=== PATIENT | female | born 1945 | race Caucasian/White ===

== ENCOUNTER 2017-10-21 08:18 | Emergency (ER) | payer MEDICARE, BC ==
[~2017-10-21] VITALS: Ht 170.2 cm; Wt 73.5 kg
[~2017-10-21 08:18] MED LIST: AMOX875T PO; ATOR40TA49 PO; COZA100T PO; FEXO180 PO; LEVO75TA3 PO; PROBCAP4 PO; PROMSYP39 PO
[2017-10-21 08:21] VITALS: BP 158/75; PULSE 47; RESP 16; TEMP 98; O2SAT 97
[2017-10-21] MEDS ORDERED: ATOR40TA16 PO (08:32)
[2017-10-21] MEDS ORDERED: FEXO15TA PO (08:32)
[2017-10-21] MEDS ORDERED: LEVO75TA3 PO (08:32)
[2017-10-21] MEDS ORDERED: METO25TA3 PO (08:32)
[2017-10-21] MEDS ORDERED: SACC1CAP3 PO (08:32)
[2017-10-21] MEDS ORDERED: ASPI1CHW4 CHEW (08:32)
[2017-10-21 08:35] LABS: BILIRUBIN, URINE NEG (NEG); BLOOD, URINE LARGE (NEG); GLUCOSE,URINE NEG (NEG); KETONE, URINE NEG (NEG); NITRITE,URINE NEG (NEG); URINE COLOR YELLOW (YELLW/STRAW); URINE LEUKOCYTE ESTERASE SMALL (NEG)
[2017-10-21 08:47] LABS: BACTERIA, URINE RARE /hpf; RBC, URINE 100-200 /hpf (0-3); SQUAMOUS EPITHELIAL CELL URINE 0-5 /hpf (0-5); WHITE BLOOD CELL CLUMPS OCC
[2017-10-21] MEDS ORDERED: BACT800T5 PO (09:06)
--- NOTE | 2017-10-21 09:06 | PD ---
HPI Chief Complaint: Complaint Time Seen by Provider: 08:57 Travel History International Travel<30 days: No Contact w/Intl Traveler<30days: No Traveled to known affect area: No History of Present Illness HPI This 72-year-old female is complaining of frequency urgency. The symptoms started just this morning moderate in severity. She is not having any flank pain. There is been no fever or chills. There is no vomiting or diarrhea. There is no radiation of the pain she has had urinary tract infections in the past. She is allergic to Ceclor. PFSH Past Medical History Hx Anticoagulant Therapy: Yes (baby aspirin) Cardiovascular Problems: Yes (mitral valve replacement secondary to regurgitation) High Cholesterol: Yes Diminished Hearing: No Gastrointestinal Disorders: Yes (divertiulosis) Hypertension: Yes Immunizations Current: Yes Thyroid Disease: Yes Tetanus Vaccination: Unknown ?: Not Menopausal: Yes Past Surgical History Gynecologic Surgery: Yes (cervical conization ) Social History Alcohol Use: Yes Tobacco Use: No (quit 5 years ago ) Substance Use: No Allergies-Medications (Allergen,Severity, Reaction): Coded Allergies: cefaclor (Unverified Allergy, Unknown, 10/21/17) Reported Meds & Prescriptions Reported Meds & Active Scripts Active Reported Levothyroxine (Levothyroxine Sodium) 75 Mcg Tab 75 Mcg PO DAILY Macy Allergy (Fexofenadine HCl) 180 Mg Tab 180 Mg PO DAILY Atorvastatin (Atorvastatin Calcium) 40 Mg Tab 40 Mg PO HS Probiotic (Saccharomyces Boulardii) 250 Mg Cap 250 Mg PO DAILY Aspirin 81 Low Dose (Aspirin) 81 Mg Chew 81 Mg CHEW DAILY Metoprolol Tartrate 25 Mg Tab 25 Mg PO DAILY Review of Systems Except as stated in HPI: all other systems reviewed are Neg General / Constitutional: No: Fever, Chills Cardiovascular: No: Chest Pain or Discomfort, Palpitations Gastrointestinal: No: Vomiting, Diarrhea Genitourinary: Positive: Urgency, Frequency, Dysuria Musculoskeletal: No: Myalgias Neurologic: No: Weakness Physical Exam Narrative GENERAL: Well-developed female SKIN: Focused skin assessment warm/dry. HEAD: Atraumatic. Normocephalic. EYES: Pupils equal and round. No scleral icterus. No injection or drainage. ENT: No nasal bleeding or discharge. Mucous membranes pink and moist. NECK: Trachea midline. No JVD. GASTROINTESTINAL: Abdomen soft, non-tender, nondistended. Hepatic and splenic margins not palpable. No CVA tenderness MUSCULOSKELETAL: No obvious deformities. No clubbing. No cyanosis. No edema. NEUROLOGICAL: Awake and alert. No obvious cranial nerve deficits. Motor grossly within normal limits. Normal speech. PSYCHIATRIC: Appropriate mood and affect; insight and judgment normal. Data Data Last Documented VS Vital Signs Date Time Temp Pulse Resp B/P (MAP) Pulse Ox O2 Delivery O2 Flow Rate FiO2 10/21/17 08:21 98.0 47 16 158/75 (102) 97 Orders Orders Urinalysis - C+S If Indicated (10/21/17 08:21) Urine Culture (10/21/17 08:25) Labs Laboratory Tests Test 10/21/17 08:25 Urine Collection Type CLEAN CATCH Urine Color YELLOW Urine Turbidity SLIGHT Urine pH 7.0 Urine Specific Baxter 1.010 Urine Protein NEG mg/dL Urine Glucose (UA) NEG mg/dL Urine Ketones NEG mg/dL Urine Occult Blood LARGE Urine Nitrite NEG Urine Bilirubin NEG Urine Urobilinogen 1.0 MG/DL Urine Leukocyte Esterase SMALL Urine RBC 100-200 /hpf Urine WBC 9-14 /hpf Urine WBC Clumps OCC Urine Squamous Epithelial Cells 0-5 /hpf Urine Bacteria RARE /hpf Microscopic Urinalysis Comment CULTURE INDICATED Urine Collection Time 08:25 [facility] Medical Decision Making Medical Screen Exam Complete: Yes Emergency Medical Condition: Yes Medical Record Reviewed: Yes Differential Diagnosis Differential includes UTI, pyelonephritis Narrative Course Urinalysis shows 100-200 red cells and 9-14 white cells and occasional clumps. She will be treated with Bactrim Diagnosis Primary Impression: Urinary tract infection Scripts Sulfamethoxazole-Trimethoprim (Bactrim DS) 800-160 Mg Tab 1 TAB PO BID for Infection for 10 Days, #20 TAB 0 Refills Prov: Kings Irwin MD 10/21/17 Disposition: 01 DISCHARGE HOME Condition: Stable Kings Irwin MD Oct 21, 2017 09:06
== END 2017-10-21 09:20 | disposition home or self-care (01) ==
LOC: PHED 08:18
DX: N39.0 Urinary tract infection, site not specified (principal); E07.9 Disorder of thyroid, unspecified; E78.00 Pure hypercholesterolemia, unspecified; I10 Essential (primary) hypertension; Z87.891 Personal history of nicotine dependence
CPT/HCPCS: 81001; 87077; 87086; 87186; 99283